=== PATIENT | male | born 1990 | race Caucasian/White ===

== ENCOUNTER 2017-04-29 23:27 | Emergency (ER) | payer SELFPAY ==
[~2017-04-29] VITALS: Ht 177.8 cm; Wt 77.3 kg
[2017-04-30] MEDS ORDERED: LORazepam 2 MG TABLET PO ONE (03:30)
[2017-04-30 04:30] VITALS: BP 136/78
== END 2017-04-30 04:32 | disposition home or self-care (01) ==
LOC: EMS 23:29
DX: F41.9 Anxiety disorder, unspecified (principal); F15.10 Other stimulant abuse, uncomplicated; F31.9 Bipolar disorder, unspecified; F17.210 Nicotine dependence, cigarettes, uncomplicated
CPT/HCPCS: 99284

== ENCOUNTER 2017-08-16 03:56 | Inpatient (IN) | payer MEDICAID ==
[~2017-08-16] VITALS: Ht 175.3 cm; Wt 76.3 kg
[~2017-08-16 03:56] MED LIST: LITH300C3 PO; LITH600 PO; QUET200T PO
[2017-08-16 05:13] LABS: BASOPHILS # (AUTO) 0.07 K/uL (0.00-0.20); BASOPHILS % (AUTO) 0.7 % (0.0-2.0); EOSINOPHILS # (AUTO) 0.17 K/uL (0.00-0.70); EOSINOPHILS % (AUTO) 1.59 % (1.0-6.0); HEMATOCRIT 43.2 % (41-53); HEMOGLOBIN 14.8 g/dL (13.5-17.5); LYMPHOCYTES # (AUTO) 2.8 K/uL (1.0-4.8); LYMPHOCYTES % (AUTO) 26.8 % (22.0-44.0); MEAN CORPUSCULAR HEMOGLOBIN 29.7 pg (26.0-34.0); MEAN CORPUSCULAR HGB CONC 34.4 G/dL (31.0-37.0); MEAN CORPUSCULAR VOLUME 86 fL (80-100); MONOCYTES # (AUTO) 0.7 K/uL (0.1-1.0); MONOCYTES % (AUTO) 6.5 % (2.0-9.0); NEUTROPHILS # (AUTO) 6.7 K/uL (1.8-7.7); NEUTROPHILS % (AUTO) 64.4 % (40.0-70.0); PLATELET COUNT (AUTO) 235 K/uL (150-450); RED CELL DISTRIBUTION WIDTH 12.2 % (11.5-14.5); WHITE BLOOD COUNT (AUTO) 10.5 K/uL (4.5-11.0)
[2017-08-16] MEDS ORDERED: HALOPERIDOL 5 MG TABLET PO ONE (05:15)
[2017-08-16] MEDS ORDERED: LORazepam 2 MG TABLET PO ONE (05:15)
[2017-08-16 05:21] LABS: ANION GAP 5 mmol/L (8-16); CALCIUM, TOTAL 9.4 mg/dL (8.8-10.5); CARBON DIOXIDE 30 mmol/L (22-29); CHLORIDE 106 mmol/L (98-107); CREATININE 0.94 mg/dL (0.60-1.30); GLOMERULAR FILTR. RATE CALC > 60 mL/min (>60); SODIUM SERUM 141 mmol/L (136-145); UREA NITROGEN, BLOOD 21 mg/dL (7-18)
[2017-08-16 05:27] LABS: ALANINE AMINOTRANSFERASE 16 U/L (12-78); ALBUMIN 4.3 g/dL (3.4-5.0); ASPARTATE AMINOTRANSFERASE 13 U/L (15-37); BILIRUBIN,TOTAL 0.4 mg/dL (0.1-1.0); TOTAL PROTEIN, SERUM 7.7 g/dL (6.4-8.2)
[2017-08-16] MEDS ORDERED: MAGNESIUM HYDROXIDE SUSPENSION 30 ML UDCUP PO PRN (07:00)
[2017-08-16] MEDS ORDERED: HALOPERIDOL 5 MG TABLET PO PRN (07:00)
[2017-08-16] MEDS ORDERED: MAG HYDROX/AL HYDROX/SIMETH ES 30 ML SUSPENSION UDCUP PO PRN (07:00)
[2017-08-16] MEDS ORDERED: ACETAMINOPHEN 325 MG TABLET PO PRN (07:00)
[2017-08-16] MEDS ORDERED: ZOLPIDEM TARTRATE 10 MG TABLET PO PRN (07:00)
[2017-08-16 12:51] VITALS: BP 133/71
[2017-08-16] MEDS: LORazepam 2 MG TABLET PO PRN (13:35)
[2017-08-16 16:00] VITALS: BP 116/66
[2017-08-16] MEDS: LITHIUM CARBONATE 600 MG CAPSULE PO SCH (17:08)
[2017-08-16] MEDS: QUEtiapine FUMARATE 200 MG TABLET PO SCH (20:18)
[2017-08-17 06:32] VITALS: BP 115/72
[2017-08-17 08:38] VITALS: BP 104/78
[2017-08-17] MEDS: LORazepam 2 MG TABLET PO PRN ×2 (08:55→16:15)
[2017-08-17] MEDS: LITHIUM CARBONATE 600 MG CAPSULE PO SCH ×2 (08:55→16:15)
[2017-08-17] MEDS: QUEtiapine FUMARATE 200 MG TABLET PO SCH ×2 (08:55→20:28)
[2017-08-17 16:00] VITALS: BP 121/70
[2017-08-18 06:18] VITALS: BP 125/81
[2017-08-18 07:13] LABS: BASOPHILS % (AUTO) 0.5 % (0.0-2.0); EOSINOPHILS % (AUTO) 2.8 % (1.0-6.0); HEMATOCRIT 43.4 % (41-53); HEMOGLOBIN 14.9 g/dL (13.5-17.5); LYMPHOCYTES # (AUTO) 2.1 K/uL (1.0-4.8); LYMPHOCYTES % (AUTO) 30.4 % (22.0-44.0); MEAN CORPUSCULAR HEMOGLOBIN 29.7 pg (26.0-34.0); MEAN CORPUSCULAR HGB CONC 34.3 G/dL (31.0-37.0); MEAN CORPUSCULAR VOLUME 87 fL (80-100); MONOCYTES # (AUTO) 0.5 K/uL (0.1-1.0); MONOCYTES % (AUTO) 6.6 % (2.0-9.0); NEUTROPHILS # (AUTO) 4.2 K/uL (1.8-7.7); NEUTROPHILS % (AUTO) 59.7 % (40.0-70.0); PLATELET COUNT (AUTO) 205 K/uL (150-450); RED BLOOD CELL COUNT(AUTO) 5.01 MIL/uL (4.50-5.90); RED CELL DISTRIBUTION WIDTH 12.6 % (11.5-14.5)
[2017-08-18 07:26] LABS: ALANINE AMINOTRANSFERASE 16 U/L (12-78); ALBUMIN 3.9 g/dL (3.4-5.0); ANION GAP 8 mmol/L (8-16); ASPARTATE AMINOTRANSFERASE 7 U/L (15-37); BILIRUBIN,TOTAL 0.3 mg/dL (0.1-1.0); CALCIUM, TOTAL 9.4 mg/dL (8.8-10.5); CARBON DIOXIDE 29 mmol/L (22-29); CHLORIDE 104 mmol/L (98-107); CREATININE 1.07 mg/dL (0.60-1.30); GLOMERULAR FILTR. RATE CALC > 60 mL/min (>60); LITHIUM 0.42 mmol/L (0.60-1.20); POTASSIUM 4.4 mmol/L (3.5-5.1); SODIUM SERUM 141 mmol/L (136-145); TOTAL PROTEIN, SERUM 7.3 g/dL (6.4-8.2); UREA NITROGEN, BLOOD 19 mg/dL (7-18)
[2017-08-18 08:35] VITALS: BP 122/75
[2017-08-18] MEDS: LORazepam 2 MG TABLET PO PRN ×2 (09:49→16:41)
[2017-08-18] MEDS: LITHIUM CARBONATE 600 MG CAPSULE PO SCH ×2 (09:49→16:41)
[2017-08-18] MEDS: QUEtiapine FUMARATE 200 MG TABLET PO SCH ×2 (09:49→20:11)
[2017-08-18 16:27] VITALS: BP 134/69
[2017-08-19] MEDS: LORazepam 2 MG TABLET PO PRN ×3 (00:01→20:08)
[2017-08-19 00:10] VITALS: BP 109/75
[2017-08-19] MEDS: QUEtiapine FUMARATE 200 MG TABLET PO SCH ×2 (09:00→20:08)
[2017-08-19] MEDS: LITHIUM CARBONATE 600 MG CAPSULE PO SCH ×2 (09:29→16:33)
[2017-08-19 09:34] VITALS: BP 114/77
[2017-08-19 16:19] VITALS: BP 123/64
[2017-08-20 05:59] VITALS: BP 122/71
[2017-08-20 08:32] VITALS: BP 128/61
[2017-08-20] MEDS: LORazepam 2 MG TABLET PO PRN (08:36)
[2017-08-20] MEDS: QUEtiapine FUMARATE 200 MG TABLET PO SCH (08:36)
[2017-08-20] MEDS: LITHIUM CARBONATE 600 MG CAPSULE PO SCH (08:36)
== END 2017-08-20 15:40 | disposition home or self-care (01) | DRG 750 ==
LOC: EMS 03:57 → B3A 11:34
PROVIDERS: ADMIT Psychiatry & Neurology Psychiatry; ATTEND Psychiatry & Neurology Psychiatry
DX: F25.1 Schizoaffective disorder, depressive type (principal); N17.9 Acute kidney failure, unspecified; R45.851 Suicidal ideations; Z91.14 Patient's other noncompliance with medication regimen; E78.1 Pure hyperglyceridemia; E78.5 Hyperlipidemia, unspecified; F15.90 Other stimulant use, unspecified, uncomplicated; F41.9 Anxiety disorder, unspecified; F60.3 Borderline personality disorder; F17.210 Nicotine dependence, cigarettes, uncomplicated; Z91.5 Personal history of self-harm; Z63.9 Problem related to primary support group, unspecified
CPT/HCPCS: 87081; 99285; G0480

== ENCOUNTER 2017-09-06 13:28 | Inpatient (IN) | payer MEDICAID ==
[~2017-09-06] VITALS: Ht 177.8 cm; Wt 79.6 kg
[2017-09-06 13:49] LABS: BASOPHILS % (AUTO) 0.2 % (0.0-2.0); EOSINOPHILS % (AUTO) 0.8 % (1.0-6.0); HEMATOCRIT 41.4 % (41-53); HEMOGLOBIN 14.4 g/dL (13.5-17.5); LYMPHOCYTES # (AUTO) 1.6 K/uL (1.0-4.8); LYMPHOCYTES % (AUTO) 16.3 % (22.0-44.0); MEAN CORPUSCULAR HEMOGLOBIN 29.9 pg (26.0-34.0); MEAN CORPUSCULAR HGB CONC 34.8 G/dL (31.0-37.0); MEAN CORPUSCULAR VOLUME 86 fL (80-100); MONOCYTES # (AUTO) 0.8 K/uL (0.1-1.0); MONOCYTES % (AUTO) 7.8 % (2.0-9.0); NEUTROPHILS # (AUTO) 7.3 K/uL (1.8-7.7); NEUTROPHILS % (AUTO) 74.9 % (40.0-70.0); PLATELET COUNT (AUTO) 259 K/uL (150-450); RED BLOOD CELL COUNT(AUTO) 4.83 MIL/uL (4.50-5.90); RED CELL DISTRIBUTION WIDTH 12.6 % (11.5-14.5); WHITE BLOOD COUNT (AUTO) 9.7 K/uL (4.5-11.0)
[2017-09-06 14:03] LABS: LITHIUM < 0.20 mmol/L (0.60-1.20)
[2017-09-06 14:18] LABS: ALANINE AMINOTRANSFERASE 30 U/L (12-78); ALBUMIN 4.6 g/dL (3.4-5.0); ASPARTATE AMINOTRANSFERASE 23 U/L (15-37); BILIRUBIN,TOTAL 1.3 mg/dL (0.1-1.0); CALCIUM, TOTAL 9.2 mg/dL (8.8-10.5); CARBON DIOXIDE 19 mmol/L (22-29); CREATININE 1.04 mg/dL (0.60-1.30); GLOMERULAR FILTR. RATE CALC > 60 mL/min (>60); TOTAL PROTEIN, SERUM 7.6 g/dL (6.4-8.2); UREA NITROGEN, BLOOD 22 mg/dL (7-18)
[2017-09-06 14:27] LABS: ANION GAP 14 mmol/L (8-16); CHLORIDE 105 mmol/L (98-107); POTASSIUM 3.5 mmol/L (3.5-5.1)
[2017-09-06 14:30] LABS: SODIUM SERUM 138 mmol/L (136-145)
[2017-09-06] MEDS ORDERED: ZOLPIDEM TARTRATE 10 MG TABLET PO PRN (16:00)
[2017-09-06] MEDS ORDERED: HALOPERIDOL 5 MG TABLET PO PRN (16:00)
[2017-09-06] MEDS: LORazepam 2 MG TABLET PO PRN (17:07)
[2017-09-06 17:09] VITALS: BP 132/63
[2017-09-07 06:35] VITALS: BP 111/68
[2017-09-07 08:15] VITALS: BP 100/60
[2017-09-07] MEDS: QUEtiapine FUMARATE 200 MG TABLET PO SCH ×2 (08:37→17:13)
[2017-09-07] MEDS ORDERED: ONDANSETRON HCL 4 MG TABLET PO PRN (09:15)
[2017-09-07] MEDS ORDERED: IBUPROFEN 600 MG TABLET PO PRN (09:15)
[2017-09-07] MEDS ORDERED: BENZOCAINE/MENTHOL LOZENGE MM PRN (09:15)
[2017-09-07] MEDS ORDERED: CloNIDine HCL 0.1 MG TABLET PO PRN (09:15)
[2017-09-07] MEDS ORDERED: MAG HYDROX/AL HYDROX/SIMETH ES 30 ML SUSPENSION UDCUP PO PRN (09:15)
[2017-09-07] MEDS ORDERED: MAGNESIUM HYDROXIDE SUSPENSION 30 ML UDCUP PO PRN (09:15)
[2017-09-07] MEDS ORDERED: PETROLATUM,WHITE 71 GM JELLY TP PRN (09:15)
[2017-09-07] MEDS ORDERED: BACITRACIN 28.4 GM OINTMENT TP PRN (09:15)
[2017-09-07] MEDS ORDERED: ALBUTEROL SULFATE HFA 90 MCG/PUFF 8 GM INHALER IH PRN (09:15)
[2017-09-07] MEDS ORDERED: ACETAMINOPHEN 325 MG TABLET PO PRN (09:15)
[2017-09-07] MEDS ORDERED: LOPERAMIDE HCL 2 MG CAPSULE PO PRN (09:15)
[2017-09-07 10:12] LABS: CHOL/HDL RATIO 2.5 (4.2-7.3); THYROID STIMULATING HORMONE 0.51 uIU/mL (0.36-3.74)
[2017-09-07 16:02] VITALS: BP 132/81
[2017-09-07] MEDS: LORazepam 2 MG TABLET PO PRN (17:13)
[2017-09-08 07:15] VITALS: BP 126/85
[2017-09-08] MEDS: NICOTINE 21 MG/24 HOUR PATCH TD SCH (08:40)
[2017-09-08] MEDS: LORazepam 2 MG TABLET PO PRN ×2 (08:40→17:03)
[2017-09-08] MEDS: CHOLECALCIFEROL (VIT D3) 1,000 UNITS TABLET PO SCH (08:40)
[2017-09-08 08:42] VITALS: BP 104/68
[2017-09-08] MEDS: QUEtiapine FUMARATE 200 MG TABLET PO SCH ×2 (08:48→17:03)
[2017-09-08 16:00] VITALS: BP 116/67
[2017-09-09 06:53] VITALS: BP 115/64
[2017-09-09 08:00] VITALS: BP 112/65
[2017-09-09] MEDS: QUEtiapine FUMARATE 200 MG TABLET PO SCH ×2 (09:08→16:03)
[2017-09-09] MEDS: NICOTINE 21 MG/24 HOUR PATCH TD SCH (09:08)
[2017-09-09] MEDS: CHOLECALCIFEROL (VIT D3) 1,000 UNITS TABLET PO SCH (09:08)
[2017-09-09] MEDS: LORazepam 2 MG TABLET PO PRN ×3 (09:08→20:09)
[2017-09-09 16:00] VITALS: BP 130/69
[2017-09-10] MEDS: CHOLECALCIFEROL (VIT D3) 1,000 UNITS TABLET PO SCH (08:16)
[2017-09-10] MEDS: QUEtiapine FUMARATE 200 MG TABLET PO SCH ×2 (08:17→16:04)
[2017-09-10] MEDS: NICOTINE 21 MG/24 HOUR PATCH TD SCH (08:17)
[2017-09-10 08:42] VITALS: BP 138/82
[2017-09-10 16:00] VITALS: BP 119/79
[2017-09-10] MEDS: LORazepam 2 MG TABLET PO PRN (16:04)
[2017-09-10] MEDS: SERTRALINE HCL 50 MG TABLET PO SCH (16:04)
[2017-09-11 06:55] VITALS: BP 113/83
[2017-09-11 08:14] VITALS: BP 124/75
[2017-09-11] MEDS ORDERED: SERT50TA12 PO (08:49)
[2017-09-11] MEDS: QUEtiapine FUMARATE 200 MG TABLET PO SCH (08:53)
[2017-09-11] MEDS: SERTRALINE HCL 50 MG TABLET PO SCH (08:53)
[2017-09-11] MEDS: CHOLECALCIFEROL (VIT D3) 1,000 UNITS TABLET PO SCH (08:54)
[2017-09-11] MEDS: NICOTINE 21 MG/24 HOUR PATCH TD SCH (08:56)
[2017-09-11] MEDS ORDERED: SERTRALINE HCL 50 MG TABLET PO SCH (09:00)
[2017-09-11] MEDS: LORazepam 2 MG TABLET PO PRN (09:05)
[2017-09-11] MEDS ORDERED: ALBU8HFA IH (09:14)
[2017-09-11] MEDS ORDERED: CHOL100034 PO (09:14)
== END 2017-09-11 11:00 | disposition home or self-care (01) | DRG 750 ==
LOC: EMS 13:30 → B3A 15:47 → MERGE 15:47
PROVIDERS: ADMIT Psychiatry & Neurology Psychiatry; ATTEND Psychiatry & Neurology Psychiatry
DX: F25.0 Schizoaffective disorder, bipolar type (principal); R45.851 Suicidal ideations; F15.20 Other stimulant dependence, uncomplicated; F17.210 Nicotine dependence, cigarettes, uncomplicated; Z79.899 Other long term (current) drug therapy; F41.9 Anxiety disorder, unspecified; F12.90 Cannabis use, unspecified, uncomplicated; G47.00 Insomnia, unspecified; E55.9 Vitamin D deficiency, unspecified; Z91.5 Personal history of self-harm; Z71.6 Tobacco abuse counseling; Z59.0 Homelessness; Z91.19 Patient's noncompliance with other medical treatment and regimen
CPT/HCPCS: 84439; 84443; 84520; 87081; 99285; 99406; G0480

== ENCOUNTER 2017-10-02 00:01 | Emergency (ER) | payer MEDICAID ==
[~2017-10-02] VITALS: Ht 177.8 cm; Wt 81.8 kg
[~2017-10-02 00:01] MED LIST changes: +ALBU8HFA IH; +CHOL100034 PO; -LITH300C3 PO; +SERT50TA12 PO
[2017-10-02 00:11] VITALS: BP 126/81
[2017-10-02 00:18] LABS: BASOPHILS % (AUTO) 0.3 % (0.0-2.0); EOSINOPHILS % (AUTO) 2.7 % (1.0-6.0); HEMATOCRIT 38.5 % (41-53); HEMOGLOBIN 13.5 g/dL (13.5-17.5); LYMPHOCYTES % (AUTO) 15.9 % (22.0-44.0); MEAN CORPUSCULAR HEMOGLOBIN 30.1 pg (26.0-34.0); MEAN CORPUSCULAR HGB CONC 35.1 G/dL (31.0-37.0); MEAN CORPUSCULAR VOLUME 86 fL (80-100); MONOCYTES # (AUTO) 0.7 K/uL (0.1-1.0); MONOCYTES % (AUTO) 5.4 % (2.0-9.0); NEUTROPHILS # (AUTO) 9.3 K/uL (1.8-7.7); NEUTROPHILS % (AUTO) 75.7 % (40.0-70.0); PLATELET COUNT (AUTO) 229 K/uL (150-450); RED BLOOD CELL COUNT(AUTO) 4.49 MIL/uL (4.50-5.90); RED CELL DISTRIBUTION WIDTH 12.2 % (11.5-14.5); WHITE BLOOD COUNT (AUTO) 12.4 K/uL (4.5-11.0)
[2017-10-02 00:29] LABS: ANION GAP 7 mmol/L (8-16); CARBON DIOXIDE 28 mmol/L (22-29); CHLORIDE 105 mmol/L (98-107); CREATININE 0.85 mg/dL (0.60-1.30); GLOMERULAR FILTR. RATE CALC > 60 mL/min (>60); POTASSIUM 3.8 mmol/L (3.5-5.1); SODIUM SERUM 140 mmol/L (136-145); UREA NITROGEN, BLOOD 24 mg/dL (7-18)
[2017-10-02 00:35] LABS: ALANINE AMINOTRANSFERASE 31 U/L (12-78); ALBUMIN 3.8 g/dL (3.4-5.0); ASPARTATE AMINOTRANSFERASE 19 U/L (15-37); BILIRUBIN,TOTAL 0.3 mg/dL (0.1-1.0); TOTAL PROTEIN, SERUM 6.8 g/dL (6.4-8.2)
== END 2017-10-02 01:25 | disposition home or self-care (01) ==
LOC: EMS 00:03
DX: F41.9 Anxiety disorder, unspecified (principal); F15.10 Other stimulant abuse, uncomplicated; F20.9 Schizophrenia, unspecified; F31.9 Bipolar disorder, unspecified; I10 Essential (primary) hypertension; F17.210 Nicotine dependence, cigarettes, uncomplicated
CPT/HCPCS: 80053; 85025; 99284; G0480

== ENCOUNTER 2017-10-23 16:16 | Inpatient (IN) | payer MEDICAID ==
[~2017-10-23] VITALS: Ht 177.8 cm; Wt 75.3 kg
[~2017-10-23 16:16] MED LIST changes: -LITH600 PO
[2017-10-23] MEDS ORDERED: ZOLPIDEM TARTRATE 10 MG TABLET PO PRN (16:45)
[2017-10-23] MEDS ORDERED: HALOPERIDOL 5 MG TABLET PO PRN (16:45)
[2017-10-23] MEDS ORDERED: INFLUENZA VIRUS VACCINE QVS 2017-18 (3YR+)/PF 60 MCG/0.5 ML SYRINGE IM ONE (17:15)
[2017-10-23] MEDS: QUEtiapine FUMARATE 200 MG TABLET PO SCH (17:20)
[2017-10-23] MEDS: LORazepam 2 MG TABLET PO PRN (17:21)
[2017-10-23 17:57] VITALS: BP 130/75
[2017-10-23] MEDS ORDERED: ALBUTEROL SULFATE HFA 90 MCG/PUFF 8 GM INHALER IH PRN (18:00)
[2017-10-24 08:35] LABS: BASOPHILS # (AUTO) 0.04 K/uL (0.00-0.20); BASOPHILS % (AUTO) 0.5 % (0.0-2.0); EOSINOPHILS % (AUTO) 3.15 % (1.0-6.0); HEMATOCRIT 41.7 % (41-53); HEMOGLOBIN 14.2 g/dL (13.5-17.5); LYMPHOCYTES # (AUTO) 1.9 K/uL (1.0-4.8); LYMPHOCYTES % (AUTO) 19.7 % (22.0-44.0); MEAN CORPUSCULAR HEMOGLOBIN 29.7 pg (26.0-34.0); MEAN CORPUSCULAR HGB CONC 34.2 G/dL (31.0-37.0); MEAN CORPUSCULAR VOLUME 87 fL (80-100); MONOCYTES # (AUTO) 0.5 K/uL (0.1-1.0); MONOCYTES % (AUTO) 5.8 % (2.0-9.0); NEUTROPHILS # (AUTO) 6.7 K/uL (1.8-7.7); NEUTROPHILS % (AUTO) 70.9 % (40.0-70.0); PLATELET COUNT (AUTO) 251 K/uL (150-450); RED BLOOD CELL COUNT(AUTO) 4.79 MIL/uL (4.50-5.90); RED CELL DISTRIBUTION WIDTH 12.8 % (11.5-14.5); WHITE BLOOD COUNT (AUTO) 9.4 K/uL (4.5-11.0)
[2017-10-24 08:40] LABS: HEMOGLOBIN A1C 5.2 % (4.5-6.2)
[2017-10-24] MEDS: CHOLECALCIFEROL (VIT D3) 1,000 UNITS TABLET PO SCH (08:43)
[2017-10-24] MEDS: QUEtiapine FUMARATE 200 MG TABLET PO SCH ×2 (08:43→16:51)
[2017-10-24] MEDS: NICOTINE 14 MG/24 HOUR PATCH TD SCH (08:43)
[2017-10-24] MEDS: SERTRALINE HCL 50 MG TABLET PO SCH (08:43)
[2017-10-24 08:47] VITALS: BP 123/65
[2017-10-24 09:01] LABS: ALANINE AMINOTRANSFERASE 16 U/L (12-78); ALBUMIN 3.8 g/dL (3.4-5.0); ANION GAP 8 mmol/L (8-16); ASPARTATE AMINOTRANSFERASE 9 U/L (15-37); BILIRUBIN,TOTAL 0.4 mg/dL (0.1-1.0); CALCIUM, TOTAL 9.1 mg/dL (8.8-10.5); CARBON DIOXIDE 28 mmol/L (22-29); CHLORIDE 106 mmol/L (98-107); CHOL/HDL RATIO 2.7 (4.2-7.3); GLOMERULAR FILTR. RATE CALC > 60 mL/min (>60); POTASSIUM 4.1 mmol/L (3.5-5.1); SODIUM SERUM 142 mmol/L (136-145); THYROID STIMULATING HORMONE 0.67 uIU/mL (0.36-3.74); TOTAL PROTEIN, SERUM 6.9 g/dL (6.4-8.2); UREA NITROGEN, BLOOD 23 mg/dL (7-18)
[2017-10-24] MEDS ORDERED: PETROLATUM,WHITE 71 GM JELLY TP PRN (13:15)
[2017-10-24] MEDS ORDERED: MAG HYDROX/AL HYDROX/SIMETH ES 30 ML SUSPENSION UDCUP PO PRN (13:15)
[2017-10-24] MEDS ORDERED: BENZOCAINE/MENTHOL LOZENGE MM PRN (13:15)
[2017-10-24] MEDS ORDERED: ACETAMINOPHEN 325 MG TABLET PO PRN (13:15)
[2017-10-24] MEDS ORDERED: CloNIDine HCL 0.1 MG TABLET PO PRN (13:15)
[2017-10-24] MEDS ORDERED: LOPERAMIDE HCL 2 MG CAPSULE PO PRN (13:15)
[2017-10-24] MEDS ORDERED: BACITRACIN 28.4 GM OINTMENT TP PRN (13:15)
[2017-10-24] MEDS ORDERED: MAGNESIUM HYDROXIDE SUSPENSION 30 ML UDCUP PO PRN (13:15)
[2017-10-24] MEDS ORDERED: IBUPROFEN 600 MG TABLET PO PRN (13:15)
[2017-10-24] MEDS ORDERED: ONDANSETRON HCL 4 MG TABLET PO PRN (13:15)
[2017-10-24 16:00] VITALS: BP 118/69
[2017-10-24] MEDS: LORazepam 2 MG TABLET PO PRN (16:51)
[2017-10-25 05:58] VITALS: BP_SYST 122; BP_SYST 22; BP_DIAS 72
[2017-10-25 08:16] VITALS: BP 110/62
[2017-10-25] MEDS: QUEtiapine FUMARATE 200 MG TABLET PO SCH ×2 (09:00→17:05)
[2017-10-25] MEDS: SERTRALINE HCL 50 MG TABLET PO SCH (09:00)
[2017-10-25] MEDS: CHOLECALCIFEROL (VIT D3) 1,000 UNITS TABLET PO SCH (09:10)
[2017-10-25] MEDS: LORazepam 2 MG TABLET PO PRN ×2 (09:11→17:05)
[2017-10-25] MEDS: NICOTINE 14 MG/24 HOUR PATCH TD SCH (09:11)
[2017-10-25 16:06] VITALS: BP 112/67
[2017-10-26 06:31] VITALS: BP 114/70
[2017-10-26 08:24] VITALS: BP 128/70
[2017-10-26] MEDS: NICOTINE 14 MG/24 HOUR PATCH TD SCH (08:57)
[2017-10-26] MEDS: CHOLECALCIFEROL (VIT D3) 1,000 UNITS TABLET PO SCH (08:57)
[2017-10-26] MEDS: SERTRALINE HCL 50 MG TABLET PO SCH (08:57)
[2017-10-26] MEDS: QUEtiapine FUMARATE 200 MG TABLET PO SCH ×3 (08:57→16:31)
[2017-10-26] MEDS: LORazepam 2 MG TABLET PO PRN ×2 (09:43→16:31)
[2017-10-26 16:00] VITALS: BP 116/65
[2017-10-27 06:06] VITALS: BP 109/66
[2017-10-27 08:04] VITALS: BP 132/79
[2017-10-27] MEDS: QUEtiapine FUMARATE 200 MG TABLET PO SCH ×2 (08:10→09:00)
[2017-10-27] MEDS: SERTRALINE HCL 50 MG TABLET PO SCH ×2 (08:10→09:00)
[2017-10-27] MEDS: CHOLECALCIFEROL (VIT D3) 1,000 UNITS TABLET PO SCH (08:10)
[2017-10-27] MEDS: NICOTINE 14 MG/24 HOUR PATCH TD SCH (08:49)
== END 2017-10-27 15:29 | disposition home or self-care (01) | DRG 750 ==
LOC: B3A 16:47
PROVIDERS: ADMIT Psychiatry & Neurology Psychiatry; ATTEND Psychiatry & Neurology Psychiatry
DX: F25.0 Schizoaffective disorder, bipolar type (principal); R45.851 Suicidal ideations; Z91.19 Patient's noncompliance with other medical treatment and regimen; E55.9 Vitamin D deficiency, unspecified; F15.10 Other stimulant abuse, uncomplicated; F12.90 Cannabis use, unspecified, uncomplicated; F17.200 Nicotine dependence, unspecified, uncomplicated; F41.9 Anxiety disorder, unspecified; G47.00 Insomnia, unspecified; Z59.0 Homelessness; Z91.5 Personal history of self-harm; Z28.21 Immunization not carried out because of patient refusal; Z56.0 Unemployment, unspecified; Z63.9 Problem related to primary support group, unspecified; Z71.6 Tobacco abuse counseling; Z71.51 Drug abuse counseling and surveillance of drug abuser
CPT/HCPCS: 83036; 84439; 84443; 90471

== ENCOUNTER 2019-03-05 15:39 | Emergency (ER) | payer MEDICAID ==
[~2019-03-05] VITALS: Ht 177.8 cm; Wt 86.4 kg
[~2019-03-05 15:39] MED LIST changes: -ALBU8HFA IH
[2019-03-05] MEDS ORDERED: OLAN10TA3 PO (15:55)
[2019-03-05] MEDS ORDERED: LITH600 PO (15:55)
[2019-03-05 16:14] LABS: BASOPHILS % (AUTO) 0.3 % (0.0-2.0); EOSINOPHILS % (AUTO) 0.1 % (1.0-6.0); HEMATOCRIT 43.1 % (41-53); HEMOGLOBIN 14.9 g/dL (13.5-17.5); LYMPHOCYTES # (AUTO) 1.1 K/uL (1.0-4.8); LYMPHOCYTES % (AUTO) 7.1 % (22.0-44.0); MEAN CORPUSCULAR HEMOGLOBIN 29.3 pg (26.0-34.0); MEAN CORPUSCULAR HGB CONC 34.7 G/dL (31.0-37.0); MEAN CORPUSCULAR VOLUME 84 fL (80-100); MONOCYTES # (AUTO) 0.6 K/uL (0.1-1.0); MONOCYTES % (AUTO) 3.6 % (2.0-9.0); NEUTROPHILS # (AUTO) 13.5 K/uL (1.8-7.7); NEUTROPHILS % (AUTO) 88.9 % (40.0-70.0); PLATELET COUNT (AUTO) 266 K/uL (150-450); RED CELL DISTRIBUTION WIDTH 12.5 % (11.5-14.5)
[2019-03-05 16:29] LABS: ALANINE AMINOTRANSFERASE 25 U/L (12-78); ALBUMIN 4.7 g/dL (3.4-5.0); ALKALINE PHOSPHATASE 104 U/L (46-116); ANION GAP 10 mmol/L (8-16); ASPARTATE AMINOTRANSFERASE 50 U/L (15-37); CALCIUM, TOTAL 9.8 mg/dL (8.8-10.5); CARBON DIOXIDE 24 mmol/L (22-29); CHLORIDE 103 mmol/L (98-107); CREATININE 1.17 mg/dL (0.60-1.30); GLOMERULAR FILTR. RATE CALC > 60 mL/min (>60); GLUCOSE,RANDOM 130 mg/dL (70-110); POTASSIUM 3.8 mmol/L (3.5-5.1); SODIUM SERUM 137 mmol/L (136-145); TOTAL PROTEIN, SERUM 8.3 g/dL (6.4-8.2); UREA NITROGEN, BLOOD 21 mg/dL (7-18)
[2019-03-05 17:03] LABS: PLATELET MORPHOLOGY COMMENT NORMAL
[2019-03-05 18:35] VITALS: BP 123/87
== END 2019-03-05 18:48 | disposition home or self-care (01) ==
LOC: EMS 15:40
DX: F20.9 Schizophrenia, unspecified (principal); F15.10 Other stimulant abuse, uncomplicated; F31.9 Bipolar disorder, unspecified; F41.9 Anxiety disorder, unspecified

== ENCOUNTER 2019-04-27 17:55 | Emergency (ER) | payer MEDICAID ==
[~2019-04-27] VITALS: Ht 177.8 cm; Wt 81.8 kg
[~2019-04-27 17:55] MED LIST changes: -CHOL100034 PO
[2019-04-27] MEDS ORDERED: LITH300C3 PO (18:25)
[2019-04-27] MEDS ORDERED: OLAN5TAB2 PO (18:25)
[2019-04-27 19:38] LABS: BASOPHILS % (AUTO) 0.4 % (0.0-2.0); HEMATOCRIT 38.6 % (41-53); HEMOGLOBIN 13.4 g/dL (13.5-17.5); LYMPHOCYTES # (AUTO) 1.9 K/uL (1.0-4.8); LYMPHOCYTES % (AUTO) 21.9 % (22.0-44.0); MEAN CORPUSCULAR HEMOGLOBIN 29.1 pg (26.0-34.0); MEAN CORPUSCULAR HGB CONC 34.8 G/dL (31.0-37.0); MEAN CORPUSCULAR VOLUME 84 fL (80-100); MONOCYTES # (AUTO) 0.6 K/uL (0.1-1.0); MONOCYTES % (AUTO) 6.4 % (2.0-9.0); NEUTROPHILS # (AUTO) 6.1 K/uL (1.8-7.7); NEUTROPHILS % (AUTO) 69.3 % (40.0-70.0); PLATELET COUNT (AUTO) 244 K/uL (150-450); RED BLOOD CELL COUNT(AUTO) 4.62 MIL/uL (4.50-5.90); RED CELL DISTRIBUTION WIDTH 13.1 % (11.5-14.5)
[2019-04-27 19:51] LABS: ANION GAP 10 mmol/L (8-16); CALCIUM, TOTAL 8.9 mg/dL (8.8-10.5); CARBON DIOXIDE 24 mmol/L (22-29); CHLORIDE 107 mmol/L (98-107); CREATININE 1.03 mg/dL (0.60-1.30); GLOMERULAR FILTR. RATE CALC > 60 mL/min (>60); GLUCOSE,RANDOM 94 mg/dL (70-110); POTASSIUM 3.4 mmol/L (3.5-5.1); SODIUM SERUM 141 mmol/L (136-145); UREA NITROGEN, BLOOD 24 mg/dL (7-18)
[2019-04-27 19:57] LABS: ALANINE AMINOTRANSFERASE 18 U/L (12-78); ALBUMIN 3.7 g/dL (3.4-5.0); ALKALINE PHOSPHATASE 109 U/L (46-116); ASPARTATE AMINOTRANSFERASE 17 U/L (15-37); BILIRUBIN,TOTAL 0.4 mg/dL (0.1-1.0); TOTAL PROTEIN, SERUM 7.2 g/dL (6.4-8.2)
[2019-04-27 21:59] LABS: AMPHET/METH SCREEN,URINE NEGATIVE (NEGATIVE); BARBITURATE SCREEN, URINE NEGATIVE (NEGATIVE); BENZODIAZEPINES SCREEN,URINE NEGATIVE (NEGATIVE); CANNABINOID SCREEN,URINE NEGATIVE (NEGATIVE); COCAINE SCREEN,URINE NEGATIVE (NEGATIVE); METHADONE SCREEN, URINE NEGATIVE (NEGATIVE); OPIATE SCREEN,URINE NEGATIVE (NEGATIVE)
[2019-04-27 22:06] LABS: PHENCYCLIDINE SCREEN,URINE NEGATIVE (NEGATIVE)
[2019-04-27] MEDS ORDERED: POTASSIUM CHLORIDE 20 MEQ ER TABLET PO ONE (22:30)
[2019-04-28 01:30] VITALS: BP 114/67
[2019-04-28] MEDS ORDERED: LORazepam 1 MG TABLET PO ONE (01:30)
== END 2019-04-28 01:41 | disposition home or self-care (01) ==
LOC: EMS 17:56
DX: F25.9 Schizoaffective disorder, unspecified (principal); F31.9 Bipolar disorder, unspecified; F19.10 Other psychoactive substance abuse, uncomplicated; F17.210 Nicotine dependence, cigarettes, uncomplicated; F41.9 Anxiety disorder, unspecified; Z88.8 Allergy status to other drugs, medicaments and biological substances
CPT/HCPCS: 36415; 80053; 80178; 80307; 85025; 99284; 99406; G0480

== ENCOUNTER 2019-05-17 15:42 | Emergency (ER) | payer MEDICAID ==
[~2019-05-17] VITALS: Ht 177.8 cm; Wt 86.0 kg
[~2019-05-17 15:42] MED LIST changes: +LITH300C3 PO; +OLAN5TAB2 PO; -QUET200T PO; -SERT50TA12 PO
[2019-05-17] MEDS ORDERED: LORazepam 1 MG TABLET PO ONE (16:30)
[2019-05-17 16:37] LABS: BASOPHILS % (AUTO) 0.6 % (0.0-2.0); EOSINOPHILS % (AUTO) 0.4 % (1.0-6.0); HEMATOCRIT 38.9 % (41-53); HEMOGLOBIN 13.3 g/dL (13.5-17.5); LYMPHOCYTES # (AUTO) 1.2 K/uL (1.0-4.8); MEAN CORPUSCULAR HEMOGLOBIN 29.5 pg (26.0-34.0); MEAN CORPUSCULAR HGB CONC 34.3 G/dL (31.0-37.0); MEAN CORPUSCULAR VOLUME 86 fL (80-100); MONOCYTES # (AUTO) 0.5 K/uL (0.1-1.0); MONOCYTES % (AUTO) 5.7 % (2.0-9.0); NEUTROPHILS # (AUTO) 7.2 K/uL (1.8-7.7); NEUTROPHILS % (AUTO) 80.3 % (40.0-70.0); PLATELET COUNT (AUTO) 342 K/uL (150-450); RED BLOOD CELL COUNT(AUTO) 4.52 MIL/uL (4.50-5.90); RED CELL DISTRIBUTION WIDTH 12.7 % (11.5-14.5)
[2019-05-17 16:45] LABS: ANION GAP 10 mmol/L (8-16); CALCIUM, TOTAL 9.3 mg/dL (8.8-10.5); CARBON DIOXIDE 22 mmol/L (22-29); CHLORIDE 108 mmol/L (98-107); CREATININE 1.05 mg/dL (0.60-1.30); GLOMERULAR FILTR. RATE CALC > 60 mL/min (>60); GLUCOSE,RANDOM 108 mg/dL (70-110); POTASSIUM 3.4 mmol/L (3.5-5.1); SODIUM SERUM 140 mmol/L (136-145); UREA NITROGEN, BLOOD 14 mg/dL (7-18)
[2019-05-17 17:04] LABS: ALANINE AMINOTRANSFERASE 21 U/L (12-78); ALBUMIN 3.9 g/dL (3.4-5.0); ALKALINE PHOSPHATASE 127 U/L (46-116); ASPARTATE AMINOTRANSFERASE 19 U/L (15-37); BILIRUBIN,TOTAL 0.5 mg/dL (0.1-1.0); TOTAL PROTEIN, SERUM 7.4 g/dL (6.4-8.2)
[2019-05-17 19:56] LABS: AMPHET/METH SCREEN,URINE NEGATIVE (NEGATIVE); BARBITURATE SCREEN, URINE NEGATIVE (NEGATIVE); BENZODIAZEPINES SCREEN,URINE NEGATIVE (NEGATIVE); CANNABINOID SCREEN,URINE NEGATIVE (NEGATIVE); COCAINE SCREEN,URINE NEGATIVE (NEGATIVE); METHADONE SCREEN, URINE NEGATIVE (NEGATIVE); OPIATE SCREEN,URINE NEGATIVE (NEGATIVE)
[2019-05-17 19:58] LABS: PHENCYCLIDINE SCREEN,URINE NEGATIVE (NEGATIVE)
[2019-05-17 23:30] VITALS: BP 120/80
== END 2019-05-17 23:32 | disposition home or self-care (01) ==
LOC: EMS 15:45
DX: F41.9 Anxiety disorder, unspecified (principal); F15.10 Other stimulant abuse, uncomplicated; F31.9 Bipolar disorder, unspecified; F20.9 Schizophrenia, unspecified; F17.210 Nicotine dependence, cigarettes, uncomplicated; F19.90 Other psychoactive substance use, unspecified, uncomplicated; Z88.8 Allergy status to other drugs, medicaments and biological substances
CPT/HCPCS: 36415; 80053; 80307; 85025; 99284; G0480